=== PATIENT | male | born 1965 | race Hispanic/Latino ===

== ENCOUNTER 2018-03-14 16:07 | Inpatient (IN) | payer MEDICAID ==
[2018-03-14 17:00] LABS: BASO # 0.1 K/uL (0.0-0.2); BASO % 1.2 % (0.0-2.0); EOS # 0.3 K/uL (0.0-0.7); EOS % 2.9 % (0.0-4.0); HEMOGLOBIN 15.5 g/dL (12.0-18.0); LYMPH % 21.7 % (20.0-40.0); MEAN CELL VOLUME 84.9 fL (80.0-94.0); MEAN CORPUSCULAR HEMOGLOBIN 29.4 pg (27.0-31.0); MEAN CORPUSCULAR HGB CONC 34.6 g/dL (33.0-37.0); MEAN PLATELET VOLUME 8.3 fL (7.2-11.7); MONO # 0.6 K/uL (0.0-0.8); MONO % 6.9 % (0.0-10.0); NEUT # 6.2 K/uL (1.8-7.0); NEUT % 67.3 % (50.0-75.0); NRBC % 0.1 % (0.0-2.0); RBC 5.28 Mil/uL (4.40-5.90); WHITE BLOOD COUNT 9.2 K/uL (4.8-10.8)
[2018-03-14 17:17] LABS: ACETAMINOPHEN < 10.0 ug/mL (10.0-30.0); ALBUMIN 4.2 g/dL (3.5-5.0); ALT/SGPT 22 U/L (21-72); AST/SGOT 29 U/L (17-59); BLOOD UREA NITROGEN 15 mg/dL (9-20); CALCIUM 9.5 mg/dl (8.6-10.4); GFR AFRICAN-AMERICAN > 60; GFR NON-AFRICAN AMERICAN > 60; SALICYLATE < 1.0 mg/dL 1
[2018-03-14 19:06] LABS: URINE BILIRUBIN 1+ (NEGATIVE); URINE BLOOD NEGATIVE (NEGATIVE); URINE CLARITY Hazy (Clear); URINE COLOR Amber (YELLOW); URINE GLUCOSE (UA) NORMAL (Normal); URINE LEUKOCYTE ESTERASE NEG Leu/uL (Negative); URINE PROTEIN 1+ mg/dL (NEGATIVE)
[2018-03-14 19:18] LABS: BARBITURATES, UR NEGATIVE (NEGATIVE); PHENCYCLIDINE, UR NEGATIVE (NEGATIVE)
[2018-03-14 19:26] LABS: BENZODIAZEPINES, UR POSITIVE (NEGATIVE); OPIATES, UR POSITIVE (NEGATIVE)
--- NOTE | 2018-03-14 19:46 | C.PDOC ---
Time Seen by Provider: 03/14/18 16:35 Chief Complaint (Nursing): Psychiatric Evaluation History Per: Patient, Family Onset/Duration Of Symptoms: Days Current Symptoms Are (Timing): Still Present Suicide/Self Injury Attempted (Context): Ingestion Ingestion Of Substance: Xanax Modifying Factor(s): Narcotics Severity: Moderate Associated Symptoms: Depression Additional History Per: Prior Records Past Medical History Reviewed: Historical Data, Nursing Documentation, Vital Signs Vital Signs: Last Vital Signs Temp 97.3 F L 03/14/18 18:15 Pulse 55 L 03/14/18 18:15 Resp 18 03/14/18 18:15 BP 126/82 03/14/18 18:15 Pulse Ox 99 03/14/18 18:15 - Medical History PMH: Hepatitis (C), HTN (Patient reported history of HTN and medication), Seizures (Patient reported seizures during opiate withdrawal) Family History: States: Unknown Family Hx - Social History Hx Tobacco Use: Yes Hx Alcohol Use: No Hx Substance Use: Yes (IVDU Heroin) - Immunization History Hx Tetanus Toxoid Vaccination: No Hx Influenza Vaccination: No Hx Pneumococcal Vaccination: No Review Of Systems Except As Marked, All Systems Reviewed And Found Negative. Constitutional: Negative for: Fever, Weakness Cardiovascular: Negative for: Chest Pain Respiratory: Negative for: Shortness of Breath Gastrointestinal: Negative for: Vomiting, Abdominal Pain Musculoskeletal: Negative for: Neck Pain Neurological: Negative for: Weakness, Numbness, Seizures Physical Exam - Physical Exam Appears: Non-toxic, No Acute Distress Skin: Normal Color, Warm, Dry Head: Atraumatic, Normacephalic Eye(s): bilateral: PERRL, EOMI Neck: Normal ROM, Supple Cardiovascular: Rhythm Regular Respiratory: Normal Breath Sounds, No Accessory Muscle Use Gastrointestinal/Abdominal: Soft, No Tenderness Extremity: Normal ROM, No Deformity Neurological/Psych: Oriented x3, Normal Motor, Normal Sensation ED Course And Treatment - Laboratory Results Result Diagrams: 03/14/18 16:49 03/14/18 16:49 Lab Interpretation: No Acute Changes O2 Sat by Pulse Oximetry: 99 Pulse Ox Interpretation: Normal Progress Note: Pt is medically stable for psych admission. Disposition Counseled Patient/Family Regarding: Studies Performed, Diagnosis, Smoking Cessation - Disposition Disposition: HOSPITALIZED Disposition Time: 19:47 Condition: STABLE - Clinical Impression Clinical Impression: Drug abuse, Depression Decision To Admit - Pt Status Changed To: Hospital Disposition Of: Inpatient - Admit Certification Admit to Inpatient:: After my assessment, the patient will require hospitalization for at least two midnights. This is because of the severity of symptoms shown, intensity of services needed, and/or the medical risk in this patient being treated as an outpatient. - InPatient: Physician Admission Certification: I certify that this patient requires 2 or more midnights of care for the following reason:: Psych. - . Bed Request Type: Psychiatry Admitting Physician: Gudelia Maher Patient Diagnosis: Drug abuse, Depression
--- NOTE | 2018-03-14 20:58 | PCM.BM ---
<Canelo Mcadams - Last Filed: 03/14/18 20:56> Treatment Plan Problems - Problems identified on initial assessmt Depression Date Initiated: 03/14/18 Time Initiated: 20:56 Assessment reference: NA Status: Active Substance Abuse Date Initiated: 03/14/18 Time Initiated: 20:56 Status: Active Treatment assets and liabiliti Patient Assests: cooperative, motivated, self-reliant, ADL independent, good support system, negotiates basic needs Patient Liabilities: live alone (Homeless), financial problems (Homeless), poor support system (Father ), substance abuse (Heroin, crack cocaine, Amphetamines, marijuana), legal issue (Recently released from [place] [facility]) - Milieu Protocol Maintain good personal hygiene: daily Encourage regular showers, daily Remind patient to perform daily oral care, every shift Assist patient to perform ADL's Conduct patient checks and document Observation sheet: Q15 minutes (For safety) Maintain personal safety: every shift Educate patient to report safety concerns to staff, every shift Monitor environment for contraband/sharps Medication safety: Monitor for expected outcome, potential side effects: every shift, Assess barriers to learning: every shift, Assess readiness for medication education: every shift <Miki Abdi - Last Filed: 03/16/18 11:13> - Diagnosis (1) Depression Status: Acute Interventions: 03/16/18 11:13 * Assess/adjust medications daily and /or as needed * See patient on an individual basis 7x/week to assess symptoms of depression * Monitor for side effects & effectiveness of medications * (2) Drug abuse Status: Acute Interventions: 03/16/18 11:13 * Assess 7x/week regarding severity of withdrawal * Educate regarding risks, benefits, side effects and alternatives of medications * Use Motivational Interviewing for abstinence * Use CBT for relapse prevention * Medication management for withdrawal symptoms * Encourage medication assisted treatment * <Melinda Padilla - Last Filed: 03/16/18 16:20> Family Contact Family involvement: Patient does not wish Family/SO involvement Family contact: Patient declines to allow family contact at present - Goals for Treatment Patient goals for treatment: "I want to go to a rehab program." Discharge/Continuing Care - Education Needs Education Needs: Patient Medication, Patient Diagnosis/Disease Process, Patient Coping Skills, Patient Placement options - Discharge Discharge Criteria: Free of Suicidal thoughts, Normal sleep pattern, Ability to care for self, No longer exhibiting s/s of withdrawal, Reduction of target symptoms Discharge to:: Substance Abuse Rehab - Treatment Team Participation Discussed with Family/SO: No Was Patient/Family/SO present at Treatment Team Meeting: Yes
--- NOTE | 2018-03-15 10:12 | PCM.PSYCH ---
Initial Psychiatric Evaluation - Initial Psychiatric Evaluation Type of Admission: Voluntary Legal Status: Capacity Chief Complaint (in patient's own words): "I am feeling depressed" History of Present Illness and Precipitating Events: Patient is a 53 year old male who presented to the ED yesterday with depression and substance abuse. Patient is currently homeless. Patient was incarcerated for 13 months and was released 2.5 months ago. Upon release, he found his apartment boarded up and came to the news that his father has . Patient is now homeless. Patient for the past 2.5 months has snorted 11 bags of heroin a day, snorted 3-4 bags of cocaine a day, used 4 mg os Xanax a day, and used 80mg of methadone on and off. Patient expresses feelings of depression but with no suicidal ideation. Patient was having suicidal ideations yesterday but does not express suicidal ideations today. Patient has no history of suicidal ideations in the past. Patient is visibly upset during the interview. Patient reports decreased sleep, interests, concentration, energy, appetite, and feelings of guilt. His last use of heroin was yesterday, 6 bags. Patient reports withdrawal symptoms complaining of nausea, joint pain, diarrhea , and headaches. Detox Hx: several time (unspecified) Rehab Hx: several times (unspecified) Medical Hx: Hepatitis C, HTN, Seizures (from opiate withdrawal) Surgical Hx: denies Medications: unknown Psych Hx: denies Fam Hx: unknown Allergies: Penicillin Current Medications: Active Medications Generic Name Dose Route Start Last Admin Trade Name Freq PRN Reason Stop Dose Admin Chlordiazepoxide 25 mg 03/14/18 23:00 03/15/18 10:03 Librium PO 03/19/18 22:59 25 mg Q6H EMILY Administration Taper Chlordiazepoxide 25 mg 03/14/18 22:04 Librium PO Q4H PRN Alcohol Withdrawal Clonidine HCl 0.1 mg 03/14/18 22:04 Catapres PO Q4H PRN Symptoms of alcohol withdrawl Gabapentin 400 mg 03/14/18 22:30 03/15/18 10:03 Neurontin PO 400 mg TID EMILY Administration Hydroxyzine HCl 50 mg 03/14/18 22:02 Atarax PO Q6H PRN Anxiety Quetiapine Fumarate 100 mg 03/14/18 22:15 06/04/18 22:49 Seroquel PO 100 mg HS EMILY Administration Past Psychiatric History - Past Psychiatric History Previous Treatment History: None Pertinent Medical Hx (Current Medical&Sleep Prob, Allergies): Allergies Allergy/AdvReac Type Severity Reaction Status Date / Time No Known Allergies Allergy Verified 03/14/18 16:25 No Known Home Med 03/14/18 Review of Systems - Review of Systems All systems: reviewed and no additional remarkable complaints except - Neurological Neurological: UNREMARKABLE - Psychiatric Psychiatric: Anxiety, Depression, Irritability, Suicidal Ideation. absent: Auditory Hallucinations, Hallucinations, Paranoia, Visual Hallucinations, Tactile Hallucinations Mental Status Examination - Personal Presentation Personal Presentation: Looks stated age - Affect Affect: Constricted, Depressed - Motor Activity Motor Activity: Calm - Reliability in Providing Information Reliability in Providing Information: Fair - Speech Speech: Organized - Mood Mood: Depressed, Anxious - Formal Thought Process Formal Thought Process: No Impairment - Obsessions/Compulsions Obsessions: No Compulsions: No - Cognitive Functions Orientation: Person, Place, Situation, Time Sensorium: Alert Attention/Concentration: Attentive Abstract Thinking: [place] Estimate of Intelligence: Below average Judgement: Imparied, as evidence by: Poor judgement, Imparied, as evidence by: Lack of insight into illness - Risk Risk: Suicidal, Withdrawal, Diminished functioning - Limitations Limitations: Living alone DSM 5 DX - DSM 5 DSM 5 Diagnosis: Major depressive disorder recurrent severe without psychotic features Opioid use disorder severe Opioid withdrawal Sedative/Hypnotic use disorder severe Sedative/Hypnotic withdrawal uncomplicated Cocaine use disorder severe - Recommended/Plan of Treatment Treatment Recommendations and Plan of Treatment: Major depressive disorder recurrent severe without psychotic features -CBT -Psychoeducation -Supportive therapy, group therapy, individual therapy -Seroquel 100 mg PO QHS -Gabapentin 400 mg po TID Opioid use disorder severe -CBT -Psychoeducation -Supportive therapy, individual therapy -Use RI for abstinence Opioid withdrawal -CBT -Psychoeducation -Supportive therapy, individual therapy -Clonidine when necessary -Methadone taper Sedative/Hypnotic use disorder severe -CBT -Psychoeducation -Supportive therapy, individual therapy -Use RI for abstinence Sedative/Hypnotic withdrawal uncomplicated -CBT -Psychoeducation -Supportive therapy, individual therapy -Librium when necessary -Librium taper Cocaine use disorder severe -Monitor signs and symptoms -Use RI for abstinence
[2018-03-15] MEDS ORDERED: Aluminum Hydroxide/Magnesium Hydroxide Susp (30 mL) PO PRN (13:12)
--- NOTE | 2018-03-16 11:13 | PCM.PYCHPN ---
Psychiatric Progress Note - Psychiatric Progress Note Patient seen today, length of contact: 16 min Patient Chief Complaint: "I am feeling depressed" Problems Identified/Issues Discussed: Patient seen and evaluated, chart reviewed and discussed with the nurse. Pt still reports depressed mood but reports some improvement in the feelings of hopelessness and helplessness. He is on methadone taper and reports withdrawal symptoms including cramps, back pain and sweating He also reports some improvement in sleep. However he remained isolated and withdrawn. He is taking medications and denies any side effects Symptoms are improving but he needs more time for stabilization. Supportive therapy and psychoeducation were given. Medication Change: Yes (Methadone taper) Medical Record Reviewed: Yes Mental Status Examination - Cognitive Function Orientation: Person, Place, Situation, Time Memory: Intact Attention: WNL Concentration: Poor Association: WNL Fund of Knowledge: Poor - Mood Mood: Depressed, Anxious - Affect Affect: Constricted, Depressed - Speech Speech: Soft - Formal Thought Process Formal Thought Process: No Impairment - Suicidal Ideation Suicidal Ideation: No - Homicidal Ideation Homicidal Ideation: No Goal/Treatment Plan - Goal/Treatment Plan Need for Continued Stay: Severe depression anxiety, Severe functional impairment Progress Toward Problem(s) and Goals/Treatment Plan: Major depressive disorder recurrent severe without psychotic features -CBT -Psychoeducation -Supportive therapy, group therapy, individual therapy -Seroquel 100 mg PO QHS -Gabapentin 400 mg po TID -Celexa 20 mg PO Daily Opioid use disorder severe -CBT -Psychoeducation -Supportive therapy, individual therapy -Use [place] for abstinence Opioid withdrawal -CBT -Psychoeducation -Supportive therapy, individual therapy -Clonidine when necessary -Methadone taper Sedative/Hypnotic use disorder severe -CBT -Psychoeducation -Supportive therapy, individual therapy -Use [place] for abstinence Sedative/Hypnotic withdrawal uncomplicated -CBT -Psychoeducation -Supportive therapy, individual therapy -Librium when necessary -Librium taper Cocaine use disorder severe -Monitor signs and symptoms -Use AZ for abstinence - Smoking Cessation Smoking Cessation Initiated: No
--- NOTE | 2018-03-16 23:23 | CP.PCM.CON ---
<JaclynAleida - Last Filed: 03/16/18 23:21> History of Present Illness - History of Present Illness History of Present Illness: CC HTN in 5E HPI Patient is a 53 M with past medical history of substance abuse, HTN and depression. Patient admitted because he feels depression and wants to get help at a facility for detox. Patient states he was given medication for HTN in the past "a water pill" and a "thiazide pill." Patient states he does not take it at home and states that he feels fine. Patient denies fever, chills, nausea, vomiting, diarrhea, constipation, headaches, blurriness, vision changes. PMH HTN, past jaw fracture surgery: none Social history: drug abuse, patient has a ETOH and tobacco use disorder history Allergies: penicillin PMD: None Review of Systems - Review of Systems All systems: reviewed and no additional remarkable complaints except - Constitutional Constitutional: As Per HPI - Genitourinary Additional comments: decreased urinary frequency Past Patient History - Past Social History Smoking Status: Light Smoker < 10 Cigarettes Daily - CARDIAC Hx Hypertension: Yes (Patient reported history of HTN and medication) - PULMONARY Hx Tuberculosis: No (Patient denied) - NEUROLOGICAL Hx Seizures: Yes (Patient reported seizures during opiate withdrawal) - HEMATOLOGICAL/ONCOLOGICAL Hx Cancer: No (Patient denied) Hx Human Immunodeficiency Virus (HIV): No (Patient denied) - GENITOURINARY/GYNECOLOGICAL Hx Sexually Transmitted Disorders: No (Patient denied) - PSYCHIATRIC Hx Substance Use: Yes - SURGICAL HISTORY Hx Surgeries: No - ANESTHESIA Hx Anesthesia: No Meds Allergies/Adverse Reactions: Allergies Allergy/AdvReac Type Severity Reaction Status Date / Time No Known Allergies Allergy Verified 03/14/18 16:25 - Medications Medications: Current Medications Al Hydrox/Mg Hydrox/Simethicone (Maalox 30 Ml) 30 ml PO TID PRN PRN Reason: Indigestion / Heartburn Chlordiazepoxide (Librium) 25 mg PO Q8H EMILY PRN Reason: Taper Stop: 03/19/18 22:59 Last Admin: 03/16/18 22:56 Dose: 25 mg Chlordiazepoxide (Librium) 25 mg PO Q4H PRN PRN Reason: Alcohol Withdrawal Last Admin: 03/16/18 20:44 Dose: 25 mg Citalopram Hydrobromide (Celexa) 20 mg PO DAILY [facility] Last Admin: 03/16/18 11:41 Dose: Not Given Clonidine HCl (Catapres) 0.1 mg PO Q4H PRN PRN Reason: Symptoms of alcohol withdrawl Last Admin: 03/16/18 16:16 Dose: 0.1 mg Gabapentin (Neurontin) 400 mg PO TID [facility] Last Admin: 03/16/18 17:47 Dose: 400 mg Hydrochlorothiazide (Microzide) 12.5 mg PO DAILY [facility] Hydroxyzine HCl (Atarax) 50 mg PO Q6H PRN PRN Reason: Anxiety Loperamide HCl (Imodium) 2 mg PO Q8 PRN PRN Reason: Diarrhea Methadone HCl (Methadone) 15 mg PO DAILY [facility] PRN Reason: Taper Stop: 03/19/18 09:59 Last Admin: 03/16/18 09:29 Dose: 15 mg Nicotine (Nicoderm Cq) 1 patch TD DAILY [facility] Last Admin: 03/16/18 16:16 Dose: 1 patch Ondansetron HCl (Zofran Tab) 4 mg PO Q8 PRN PRN Reason: Nausea/Vomiting Quetiapine Fumarate (Seroquel) 100 mg PO HS [facility] Last Admin: 03/16/18 22:56 Dose: 100 mg Physical Exam - Constitutional Appears: Non-toxic, No Acute Distress - Head Exam Head Exam: ATRAUMATIC, NORMAL INSPECTION, NORMOCEPHALIC - Eye Exam Eye Exam: EOMI, Normal appearance - ENT Exam ENT Exam: Mucous Membranes Moist, Normal Exam - Neck Exam Neck exam: Positive for: Lymphadenopathy, Normal Inspection - Respiratory Exam Respiratory Exam: Clear to Auscultation Bilateral, NORMAL BREATHING PATTERN. absent: Accessory Muscle Use - Cardiovascular Exam Cardiovascular Exam: REGULAR RHYTHM, +S1, +S2. absent: Bradycardia, Tachycardia - GI/Abdominal Exam GI & Abdominal Exam: Soft. absent: Firm, Guarding, Tenderness - Extremities Exam Extremities exam: Positive for: full ROM, normal inspection. Negative for: pedal edema - Back Exam Back exam: FULL ROM, NORMAL INSPECTION - Neurological Exam Neurological exam: Alert, CN II-XII Intact, Reflexes Normal - Psychiatric Exam Psychiatric exam: Flat Affect, Normal Mood Results - Vital Signs Recent Vital Signs: Last Vital Signs Temp 97.6 F 03/16/18 06:22 Pulse 76 03/16/18 22:37 Resp 20 03/16/18 06:22 BP 162/133 H 03/16/18 22:37 Pulse Ox 97 03/14/18 20:08 - Labs Result Diagrams: 03/14/18 16:49 03/14/18 16:49 Assessment & Plan - Assessment and Plan (Free Text) Assessment: HTN HCTZ 12.5 mg POQD Catapres 0.1 mg POQ4H PRN monitor vitals Substance abuse management per Psychiatry/Primary Librium 25 mg PO Q8H Methadone 15mg POQD Zofran 4 mg POQ8H PRN Seroquel 100 mg PO QHS Neurontin 400mg POTID Depression management per Psychiatry/Primary Citalopram 20 mg POQD Atarax 50 mg POQ6H PRN Tobacco Use disorder Nicotine TD QD Prophylaxis Maalox 30cc PO TID PRN patient can ambulate discussed with Dr. Gavi Anaya DO PGY1 - Date & Time Date: 03/16/18 Time: 23:26 <Chriss Gatica - Last Filed: 03/17/18 06:25> Meds - Medications Medications: Current Medications Al Hydrox/Mg Hydrox/Simethicone (Maalox 30 Ml) 30 ml PO TID PRN PRN Reason: Indigestion / Heartburn Chlordiazepoxide (Librium) 25 mg PO Q8H EMILY PRN Reason: Taper Stop: 03/19/18 22:59 Last Admin: 03/16/18 22:56 Dose: 25 mg Chlordiazepoxide (Librium) 25 mg PO Q4H PRN PRN Reason: Alcohol Withdrawal Last Admin: 03/16/18 20:44 Dose: 25 mg Citalopram Hydrobromide (Celexa) 20 mg PO DAILY [facility] Last Admin: 03/16/18 11:41 Dose: Not Given Clonidine HCl (Catapres) 0.1 mg PO Q4H PRN PRN Reason: Symptoms of alcohol withdrawl Last Admin: 03/16/18 16:16 Dose: 0.1 mg Gabapentin (Neurontin) 400 mg PO TID [facility] Last Admin: 03/16/18 17:47 Dose: 400 mg Hydrochlorothiazide (Microzide) 12.5 mg PO DAILY [facility] Hydroxyzine HCl (Atarax) 50 mg PO Q6H PRN PRN Reason: Anxiety Loperamide HCl (Imodium) 2 mg PO Q8 PRN PRN Reason: Diarrhea Methadone HCl (Methadone) 15 mg PO DAILY [facility]ILY PRN Reason: Taper Stop: 03/19/18 09:59 Last Admin: 03/16/18 09:29 Dose: 15 mg Nicotine (Nicoderm Cq) 1 patch TD DAILY [facility] Last Admin: 03/16/18 16:16 Dose: 1 patch Ondansetron HCl (Zofran Tab) 4 mg PO Q8 PRN PRN Reason: Nausea/Vomiting Quetiapine Fumarate (Seroquel) 100 mg PO HS [facility] Last Admin: 03/16/18 22:56 Dose: 100 mg Results - Vital Signs Recent Vital Signs: Last Vital Signs Temp 97.6 F 03/16/18 06:22 Pulse 76 03/16/18 22:37 Resp 20 03/16/18 06:22 BP 162/133 H 03/16/18 22:37 Pulse Ox 97 03/14/18 20:08 - Labs Result Diagrams: 03/14/18 16:49 03/14/18 16:49 Assessment & Plan - Date & Time Date: 03/17/18 (I have seen and examined the patient. I agree with the findings and plan of care as documented by Dr. Anaya. Patient with polysubstance abuse. Managed by psych. Consulted for hypertension. Currently on catapress prn. HCTz added. Monitor and adjust meds as necessary. ) Time: 06:23 Attending/Attestation - Attestation I have personally seen and examined this patient.: Yes I have fully participated in the care of the patient.: Yes I have reviewed all pertinent clinical information: Yes
--- NOTE | 2018-03-17 09:22 | CP.PCM.PN ---
Subjective - Date & Time of Evaluation Date of Evaluation: 03/17/18 Time of Evaluation: 07:00 - Subjective Subjective: Medicine Progress Note: Patient was seen and examined at bedside in the AM. Patient states he was feeling a bit anxious. He states he used cocaine (snorting), heroin (IV), and smoking. Patient denies chest pain, shortness of breath, palpitations, nausea or vomiting. Objective - Vital Signs/Intake and Output Vital Signs (last 24 hours): Temp Pulse Resp BP Pulse Ox 97.6 F 56 L 20 121/83 97 03/17/18 06:26 03/17/18 06:26 03/17/18 06:26 03/17/18 06:26 03/14/18 20:08 - Medications Medications: Current Medications Al Hydrox/Mg Hydrox/Simethicone (Maalox 30 Ml) 30 ml PO TID PRN PRN Reason: Indigestion / Heartburn Chlordiazepoxide (Librium) 25 mg PO Q8H [facility] PRN Reason: Taper Stop: 03/19/18 22:59 Last Admin: 03/17/18 07:59 Dose: 25 mg Chlordiazepoxide (Librium) 25 mg PO Q4H PRN PRN Reason: Alcohol Withdrawal Last Admin: 03/16/18 20:44 Dose: 25 mg Citalopram Hydrobromide (Celexa) 20 mg PO DAILY [facility] Last Admin: 03/16/18 11:41 Dose: Not Given Clonidine HCl (Catapres) 0.1 mg PO Q4H PRN PRN Reason: Symptoms of alcohol withdrawl Last Admin: 03/16/18 16:16 Dose: 0.1 mg Gabapentin (Neurontin) 400 mg PO TID [facility] Last Admin: 03/16/18 17:47 Dose: 400 mg Hydrochlorothiazide (Microzide) 12.5 mg PO DAILY [facility] Hydroxyzine HCl (Atarax) 50 mg PO Q6H PRN PRN Reason: Anxiety Loperamide HCl (Imodium) 2 mg PO Q8 PRN PRN Reason: Diarrhea Methadone HCl (Methadone) 15 mg PO DAILY [facility] PRN Reason: Taper Stop: 03/19/18 09:59 Last Admin: 03/16/18 09:29 Dose: 15 mg Nicotine (Nicoderm Cq) 1 patch TD DAILY [facility] Last Admin: 03/16/18 16:16 Dose: 1 patch Ondansetron HCl (Zofran Tab) 4 mg PO Q8 PRN PRN Reason: Nausea/Vomiting Quetiapine Fumarate (Seroquel) 100 mg PO HS [facility]ILY Last Admin: 03/16/18 22:56 Dose: 100 mg - Labs Labs: 03/14/18 16:49 03/14/18 16:49 - Constitutional Appears: No Acute Distress - Head Exam Head Exam: ATRAUMATIC, NORMAL INSPECTION - Eye Exam Eye Exam: EOMI, Normal appearance - ENT Exam ENT Exam: Mucous Membranes Moist - Cardiovascular Exam Cardiovascular Exam: REGULAR RHYTHM, +S1, +S2 - GI/Abdominal Exam GI & Abdominal Exam: Soft, Normal Bowel Sounds. absent: Tenderness - Extremities Exam Extremities Exam: Normal Inspection - Neurological Exam Neurological Exam: Alert, Awake, Oriented x3 - Psychiatric Exam Psychiatric exam: Normal Affect - Skin Skin Exam: Normal Color Assessment and Plan - Assessment and Plan (Free Text) Assessment: Elevated blood pressure - secondary to heroin/cocaine withdrawal vs. essential hypertension - Recommendation if blood pressure >130/90 please start HCTZ 12.5 mg PO daily Medicine is signing off. Thank you for this consult. Please reconsult if necessary. Case discussed with Dr. Dennis Carrillo PGY-1
--- NOTE | 2018-03-17 10:09 | PCM.PYCHPN ---
Psychiatric Progress Note - Psychiatric Progress Note Patient seen today, length of contact: 16 min Patient Chief Complaint: "I am feeling little better" Problems Identified/Issues Discussed: Patient seen and evaluated, chart reviewed and discussed with the nurse. Pt reports some improvement in sleep. However he started coming out of his room. Pt still reports depressed mood but reports some improvement in the feelings of hopelessness and helplessness. He still reports withdrawal symptoms including cramps, back pain, anxiety and sweating He is taking medications and denies any side effects Symptoms are improving but he needs more time for stabilization. Supportive therapy and psychoeducation were given. Medication Change: Yes Medical Record Reviewed: Yes Mental Status Examination - Cognitive Function Orientation: Person, Place, Situation, Time Memory: Intact Attention: WNL Concentration: Poor Association: WNL Fund of Knowledge: Poor - Mood Mood: Depressed, Anxious - Affect Affect: Constricted, Depressed - Speech Speech: Soft - Formal Thought Process Formal Thought Process: No Impairment - Suicidal Ideation Suicidal Ideation: No - Homicidal Ideation Homicidal Ideation: No Goal/Treatment Plan - Goal/Treatment Plan Need for Continued Stay: Severe depression anxiety, Severe functional impairment Progress Toward Problem(s) and Goals/Treatment Plan: Major depressive disorder recurrent severe without psychotic features -CBT -Psychoeducation -Supportive therapy, group therapy, individual therapy -Seroquel 100 mg PO QHS -Gabapentin 400 mg po TID -Celexa 20 mg Opioid use disorder severe -CBT -Psychoeducation -Supportive therapy, individual therapy -Use [place] for abstinence Opioid withdrawal -CBT -Psychoeducation -Supportive therapy, individual therapy -Clonidine when necessary -Methadone taper Sedative/Hypnotic use disorder severe -CBT -Psychoeducation -Supportive therapy, individual therapy -Use OR for abstinence Sedative/Hypnotic withdrawal uncomplicated -CBT -Psychoeducation -Supportive therapy, individual therapy -Librium when necessary -Librium taper Cocaine use disorder severe -Monitor signs and symptoms -Use OR for abstinence - Smoking Cessation Smoking Cessation Initiated: No
--- NOTE | 2018-03-18 10:00 | PCM.PYCHPN ---
Psychiatric Progress Note - Psychiatric Progress Note Patient seen today, length of contact: 16 min Patient Chief Complaint: "I am feeling little better" Problems Identified/Issues Discussed: Patient seen and evaluated, chart reviewed and discussed with the nurse. Pt still reports depressed mood but reports some improvement in the feelings of hopelessness and helplessness. He still reports withdrawal symptoms including cramps, back pain, anxiety and sweating, and is asking for more methadone. He was to go to inpatient rehabilitation after discharge. He is taking medications and denies any side effects Symptoms are improving but he needs more time for stabilization. Supportive therapy and psychoeducation were given. Medication Change: Yes Medical Record Reviewed: Yes Mental Status Examination - Cognitive Function Orientation: Person, Place, Situation, Time Memory: Intact Attention: WNL Concentration: Poor Association: WNL Fund of Knowledge: Poor - Mood Mood: Depressed, Anxious - Affect Affect: Constricted, Depressed - Speech Speech: Soft - Formal Thought Process Formal Thought Process: No Impairment - Suicidal Ideation Suicidal Ideation: No - Homicidal Ideation Homicidal Ideation: No Goal/Treatment Plan - Goal/Treatment Plan Need for Continued Stay: Severe depression anxiety, Severe functional impairment Progress Toward Problem(s) and Goals/Treatment Plan: Major depressive disorder recurrent severe without psychotic features -CBT -Psychoeducation -Supportive therapy, group therapy, individual therapy -Seroquel 100 mg PO QHS -Gabapentin 400 mg po TID -Celexa 20 mg Opioid use disorder severe -CBT -Psychoeducation -Supportive therapy, individual therapy -Use [place] for abstinence Opioid withdrawal -CBT -Psychoeducation -Supportive therapy, individual therapy -Clonidine when necessary -Methadone taper Sedative/Hypnotic use disorder severe -CBT -Psychoeducation -Supportive therapy, individual therapy -Use MS for abstinence Sedative/Hypnotic withdrawal uncomplicated -CBT -Psychoeducation -Supportive therapy, individual therapy -Librium when necessary -Librium taper Cocaine use disorder severe -Monitor signs and symptoms -Use MS for abstinence
--- NOTE | 2018-03-19 16:02 | PCM.PYCHPN ---
Psychiatric Progress Note - Psychiatric Progress Note Patient seen today, length of contact: 16 min Problems Identified/Issues Discussed: Patient seen and evaluated, chart reviewed and discussed with the nurse. Pt reports improvement in sleep. He started coming out of his room. Pt still reports depressed mood but reports some improvement in the feelings of hopelessness and helplessness. He reports improvement in withdrawal symptoms including cramps, back pain, anxiety and sweating He is taking medications and denies any side effects Symptoms are improving but he needs more time for stabilization. Supportive therapy and psychoeducation were given. Medication Change: Yes Medical Record Reviewed: Yes Mental Status Examination - Cognitive Function Orientation: Person, Place, Situation, Time Memory: Intact Attention: WNL Concentration: Poor Association: WNL Fund of Knowledge: Poor Decription of patient's judgement and insights: fair/fair Addtional comments: cooperative - Mood Mood: Depressed, Anxious - Affect Affect: Constricted, Depressed - Speech Speech: Soft - Formal Thought Process Formal Thought Process: No Impairment Psychotic Thoughts and Behaviors: denied - Suicidal Ideation Suicidal Ideation: No Plan: denied - Homicidal Ideation Homicidal Ideation: No Plan: denied Goal/Treatment Plan - Goal/Treatment Plan Need for Continued Stay: Severe depression anxiety, Severe functional impairment Progress Toward Problem(s) and Goals/Treatment Plan: Continue treatment as per primary team Therapy in milieu Psychoeducation provided Estimated Date of D/C: 03/22/18
--- NOTE | 2018-03-20 17:56 | PCM.PYCHPN ---
Psychiatric Progress Note - Psychiatric Progress Note Patient seen today, length of contact: 16 min Problems Identified/Issues Discussed: Patient seen and evaluated, chart reviewed and discussed with the nurse. Pt still reports depressed mood with some improvement in his feelings of hopelessness and helplessness. He reports improvement in withdrawal symptoms including cramps, back pain, anxiety and sweating. Pt reports improvement in sleep. He started coming out of his room. He is taking medications and denies any side effects Symptoms are improving but he needs more time for stabilization. Supportive therapy and psychoeducation were given. Medication Change: No Medical Record Reviewed: Yes Mental Status Examination - Cognitive Function Orientation: Person, Place, Situation, Time Memory: Intact Attention: WNL Concentration: Poor Association: Loose Fund of Knowledge: Poor Decription of patient's judgement and insights: fair/fair - Mood Mood: Depressed, Anxious - Affect Affect: Constricted, Depressed - Speech Speech: Soft - Formal Thought Process Formal Thought Process: Delusions Psychotic Thoughts and Behaviors: denied - Suicidal Ideation Suicidal Ideation: No Plan: denied - Homicidal Ideation Homicidal Ideation: No Plan: denied Goal/Treatment Plan - Goal/Treatment Plan Need for Continued Stay: Severe depression anxiety, Severe functional impairment Progress Toward Problem(s) and Goals/Treatment Plan: Continue treatment as per primary team Therapy in milieu Psychoeducation provided Estimated Date of D/C: 03/22/18 - Smoking Cessation Smoking Cessation Initiated: No
[2018-03-21 06:59] VITALS: RESP 20
[2018-03-22 06:42] VITALS: BP 143/93; PULSE 53; TEMP 97.6; O2SAT 99
--- NOTE | 2018-03-22 09:51 | PCM.PYCHPN ---
Psychiatric Progress Note - Psychiatric Progress Note Patient seen today, length of contact: 16 min Patient Chief Complaint: "I am feeling little better" Problems Identified/Issues Discussed: Patient seen and evaluated, chart reviewed and discussed with the nurse. Pt still reports depressed mood but reports some improvement in the feelings of hopelessness and helplessness. He still reports withdrawal symptoms including cramps, back pain, anxiety and sweating, and is asking for more methadone. He was to go to inpatient rehabilitation after discharge. He is taking medications and denies any side effects Symptoms are improving but he needs more time for stabilization. Supportive therapy and psychoeducation were given. Medication Change: No Medical Record Reviewed: Yes Mental Status Examination - Cognitive Function Orientation: Person, Place, Situation, Time Memory: Intact Attention: WNL Concentration: Poor Association: Loose Fund of Knowledge: Poor - Mood Mood: Depressed, Anxious - Affect Affect: Constricted, Depressed - Speech Speech: Soft - Formal Thought Process Formal Thought Process: Delusions - Suicidal Ideation Suicidal Ideation: No - Homicidal Ideation Homicidal Ideation: No Goal/Treatment Plan - Goal/Treatment Plan Need for Continued Stay: Severe depression anxiety, Severe functional impairment Progress Toward Problem(s) and Goals/Treatment Plan: Major depressive disorder recurrent severe without psychotic features -CBT -Psychoeducation -Supportive therapy, group therapy, individual therapy -Seroquel 100 mg PO QHS -Gabapentin 400 mg po TID -Celexa 20 mg Opioid use disorder severe -CBT -Psychoeducation -Supportive therapy, individual therapy -Use [place] for abstinence Opioid withdrawal -CBT -Psychoeducation -Supportive therapy, individual therapy -Clonidine when necessary -Methadone taper Sedative/Hypnotic use disorder severe -CBT -Psychoeducation -Supportive therapy, individual therapy -Use WI for abstinence Sedative/Hypnotic withdrawal uncomplicated -CBT -Psychoeducation -Supportive therapy, individual therapy -Librium when necessary -Librium taper Cocaine use disorder severe -Monitor signs and symptoms -Use WI for abstinence Estimated Date of D/C: 03/22/18
--- NOTE | 2018-03-22 09:52 | PCM.PYCHDC ---
Mental Status Examination - Mental Status Examination Orientation: Person, Place, Situation, Time Memory: Intact Mood: Neutral Affect: Constricted Speech: Soft Attention: WNL Concentration: WNL Association: WNL Fund of Knowledge: WNL Formal Thought Process: No Impairment Description of patient's judgement and insight: good, fair Psychotic Thoughts and Behaviors: denies any AVH Suicidal Ideation: No Current Homicidal Ideation?: No Discharge Summary - Discharge Note Reason for Hospitalization: Patient is a 53 year old male who presented to the ED yesterday with depression and substance abuse. Patient is currently homeless. Patient was incarcerated for 13 months and was released 2.5 months ago. Upon release, he found his apartment boarded up and came to the news that his father has . Patient is now homeless. Patient for the past 2.5 months has snorted 11 bags of heroin a day, snorted 3-4 bags of cocaine a day, used 4 mg os Xanax a day, and used 80mg of methadone on and off. Patient expresses feelings of depression but with no suicidal ideation. Patient was having suicidal ideations yesterday but does not express suicidal ideations today. Patient has no history of suicidal ideations in the past. Patient is visibly upset during the interview. Patient reports decreased sleep, interests, concentration, energy, appetite, and feelings of guilt. His last use of heroin was yesterday, 6 bags. Patient reports withdrawal symptoms complaining of nausea, joint pain, diarrhea , and headaches. Consultations:: List each consultation separately and include: 1. Reason for request. 2. Findings. 3. Follow-up Summary of Hospital Course include:: 1. Description of specific treatment plan utilized for patients during their course of treatmen. 2. Summarize the time- course for resolution of acute symptoms and/or regressed behaviors. 3. Describe issues identified and worked on during hospitalization. 4. Describe medication utilized. 5. Describe medical problems identified and treated. 6. Reassessment of suicide risk Summary of Hospital Course: Patient is a 53 year old male who presented to the ED yesterday with depression and substance abuse. Patient is currently homeless. Patient was incarcerated for 13 months and was released 2.5 months ago. Upon release, he found his apartment boarded up and came to the news that his father has . Patient is now homeless. Patient for the past 2.5 months has snorted 11 bags of heroin a day, snorted 3-4 bags of cocaine a day, used 4 mg os Xanax a day, and used 80mg of methadone on and off. Patient expresses feelings of depression but with no suicidal ideation. Patient was having suicidal ideations yesterday but does not express suicidal ideations today. Patient has no history of suicidal ideations in the past. Patient is visibly upset during the interview. Patient reports decreased sleep, interests, concentration, energy, appetite, and feelings of guilt. His last use of heroin was yesterday, 6 bags. Patient reports withdrawal symptoms complaining of nausea, joint pain, diarrhea , and headaches. Detox Hx: several time (unspecified) Rehab Hx: several times (unspecified) Medical Hx: Hepatitis C, HTN, Seizures (from opiate withdrawal) Surgical Hx: denies Medications: unknown Psych Hx: denies Fam Hx: unknown Allergies: Penicillin - Diagnosis (1) Depression Current Visit: Yes Status: Acute (2) Drug abuse Current Visit: Yes Status: Acute - Final Diagnosis (DSM 5) Condition upon Discharge: STABLE Disposition: HOME/ ROUTINE Follow-up Treatment Plan: Major depressive disorder recurrent severe without psychotic features -CBT -Psychoeducation -Supportive therapy, group therapy, individual therapy -Seroquel 100 mg PO QHS -Gabapentin 400 mg po TID -Celexa 20 mg Opioid use disorder severe -CBT -Psychoeducation -Supportive therapy, individual therapy -Use ND for abstinence Opioid withdrawal -CBT -Psychoeducation -Supportive therapy, individual therapy -Clonidine when necessary -Methadone taper Sedative/Hypnotic use disorder severe -CBT -Psychoeducation -Supportive therapy, individual therapy -Use ND for abstinence Sedative/Hypnotic withdrawal uncomplicated -CBT -Psychoeducation -Supportive therapy, individual therapy -Librium when necessary -Librium taper Cocaine use disorder severe -Monitor signs and symptoms -Use ND for abstinence Prescriptions/Medication Reconciliation: Citalopram [celEXA] 20 mg PO DAILY #30 tab hydrOXYzine HCl [Atarax] 50 mg PO BID PRN #60 tab PRN Reason: Anxiety
== END 2018-03-22 12:28 | disposition home or self-care (01) | DRG 430 ==
LOC: C.ER 16:07 → C.5E 19:49
PROVIDERS: ADMIT Psychiatry & Neurology Psychiatry; ATTEND Psychiatry & Neurology Psychiatry
PROC: GZ3ZZZZ Medication Management (ICD-10-PCS; principal; 2018-03-14)
PROC: GZHZZZZ Group Psychotherapy (ICD-10-PCS; 2018-03-14)
PROC: GZ56ZZZ Individual Psychotherapy, Supportive (ICD-10-PCS; 2018-03-14)
PROC: HZ2ZZZZ Detoxification Services for Substance Abuse Treatment (ICD-10-PCS; 2018-03-14)
PROC: HZ56ZZZ Individual Psychotherapy for Substance Abuse Treatment, Psychoeducation (ICD-10-PCS; 2018-03-14)
PROC: HZ59ZZZ Individual Psychotherapy for Substance Abuse Treatment, Supportive (ICD-10-PCS; 2018-03-14)
DX: F33.2 Major depressive disorder, recurrent severe without psychotic features (principal); F11.23 Opioid dependence with withdrawal; F13.239 Sedative, hypnotic or anxiolytic dependence with withdrawal, unspecified; F14.20 Cocaine dependence, uncomplicated; B18.2 Chronic viral hepatitis C; F41.9 Anxiety disorder, unspecified; I10 Essential (primary) hypertension; Z59.0 Homelessness; Z72.0 Tobacco use; Z79.899 Other long term (current) drug therapy

== ENCOUNTER 2018-03-24 01:07 | Emergency (ER) | payer MEDICAID ==
[2018-03-24 01:23] VITALS: O2SAT 98
--- NOTE | 2018-03-24 01:33 | C.PDOC ---
History Of Present Illness Patient presents to the ER stating he has been feeling depressed with some suicidal ideation but no plan. Patient admits to heroin and cocaine used today. Patient was discharged a few days ago for similar complaints. Denies physical complaints at this time. Time Seen by Provider: 03/24/18 01:33 Chief Complaint (Nursing): Psychiatric Evaluation History Per: Patient History/Exam Limitations: no limitations Onset/Duration Of Symptoms: Days Current Symptoms Are (Timing): Still Present Suicide/Self Injury Attempted (Context): None Modifying Factor(s): None Severity: None Pain Scale Rating Of: 0 Associated Symptoms: Depression, Suicidal Thoughts. denies: Suicidal Plan Involuntary Hold By: None Recent travel outside of the [place]: No Past Medical History Reviewed: Historical Data, Nursing Documentation, Vital Signs Vital Signs: Last Vital Signs Temp 98.4 F 03/24/18 01:16 Pulse 71 03/24/18 01:16 Resp 16 03/24/18 01:16 BP 187/109 H 03/24/18 01:16 Pulse Ox 98 03/24/18 02:12 - Medical History PMH: Hepatitis (C), HTN (Patient states non compliant with HTN meds), Seizures ( Patient reported seizures during opiate withdrawal) - [facility] Procedures DETOXIFICATION SERVICES FOR SUBSTANCE ABUSE TREATMENT (03/14/18) GROUP PSYCHOTHERAPY (03/14/18) INDIV PSYCHOTHERAPY FOR SUBSTANCE ABUSE TREATMENT, SUPPORT (03/14/18) INDIV PSYCHOTHERAPY FOR SUBSTANCE ABUSE, PSYCHOEDUCATION (03/14/18) INDIVIDUAL PSYCHOTHERAPY, SUPPORTIVE (03/14/18) MEDICATION MANAGEMENT (03/14/18) Family History: States: No Known Family Hx - Social History Hx Tobacco Use: Yes Hx Alcohol Use: No Hx Substance Use: Yes - Immunization History Hx Tetanus Toxoid Vaccination: No Hx Influenza Vaccination: No Hx Pneumococcal Vaccination: No Review Of Systems Constitutional: Negative for: Fever, Chills Cardiovascular: Negative for: Chest Pain, Palpitations Respiratory: Negative for: Cough, Shortness of Breath Gastrointestinal: Negative for: Nausea, Vomiting Psych: Positive for: Depression, Suicidal ideation Physical Exam - Physical Exam Appears: Non-toxic Skin: Warm, Dry Head: Normacephalic Oral Mucosa: Moist Chest: Symmetrical, No Tenderness Cardiovascular: Rhythm Regular Respiratory: No Rales, No Rhonchi, No Wheezing Gastrointestinal/Abdominal: Soft, No Tenderness Neurological/Psych: Oriented x3 ED Course And Treatment - Laboratory Results Result Diagrams: 03/24/18 02:27 03/24/18 02:27 O2 Sat by Pulse Oximetry: 98 (Room air) Pulse Ox Interpretation: Normal Progress Note: Blood work and urinalysis ordered. Crisis notified. pt was cleared for discharge by dr hansen Disposition Counseled Patient/Family Regarding: Studies Performed, Diagnosis, Need For Followup - Disposition Referrals: [facility] [Outside] Disposition: HOME/ ROUTINE Disposition Time: 01:33 Condition: FAIR Instructions: Polysubstance Abuse (DC) Forms: [employer] ([place] Citizen) - Clinical Impression Clinical Impression: Polysubstance abuse - Scribe Statement The provider has reviewed the documentation as recorded by the Scribe Ervin Don All medical record entries made by the Scribe were at my direction and personally dictated by me. I have reviewed the chart and agree that the record accurately reflects my personal performance of the history, physical exam, medical decision making, and the department course for this patient. I have also personally directed, reviewed, and agree with the discharge instructions and disposition.
[2018-03-24 02:35] LABS: BASO % 0.5 % (0.0-2.0); EOS # 0.1 K/uL (0.0-0.7); EOS % 1.2 % (0.0-4.0); GRANULAR CAST 4 /lpf (0-1); HEMOGLOBIN 16.6 g/dL (12.0-18.0); LYMPH # 1.8 K/uL (1.0-4.3); LYMPH % 22.3 % (20.0-40.0); MEAN CELL VOLUME 85.4 fL (80.0-94.0); MEAN CORPUSCULAR HEMOGLOBIN 28.8 pg (27.0-31.0); MEAN CORPUSCULAR HGB CONC 33.7 g/dL (33.0-37.0); MEAN PLATELET VOLUME 7.8 fL (7.2-11.7); MONO # 0.5 K/uL (0.0-0.8); MONO % 6.4 % (0.0-10.0); NEUT # 5.5 K/uL (1.8-7.0); NEUT % 69.6 % (50.0-75.0); NRBC % 0.1 % (0.0-2.0); RBC 5.77 Mil/uL (4.40-5.90); RED CELL DISTRIBUTION WIDTH 12.6 % (11.5-14.5); URINE BILIRUBIN NEGATIVE (NEGATIVE); URINE BLOOD NEGATIVE (NEGATIVE); URINE CLARITY Clear (Clear); URINE COLOR Yellow (YELLOW); URINE GLUCOSE (UA) NORMAL (Normal); URINE LEUKOCYTE ESTERASE NEG Leu/uL (Negative); URINE PROTEIN NEGATIVE (NEGATIVE); URINE UROBILINOGEN NORMAL mg/dL (0.2-1.0); WHITE BLOOD COUNT 7.9 K/uL (4.8-10.8)
[2018-03-24 02:46] LABS: BARBITURATES, UR NEGATIVE (NEGATIVE); PHENCYCLIDINE, UR NEGATIVE (NEGATIVE)
[2018-03-24 02:47] LABS: ALBUMIN 4.9 g/dL (3.5-5.0); ALT/SGPT 118 U/L (21-72); AST/SGOT 74 U/L (17-59); BLOOD UREA NITROGEN 14 mg/dL (9-20); CALCIUM 9.5 mg/dl (8.6-10.4); GFR AFRICAN-AMERICAN > 60; GFR NON-AFRICAN AMERICAN > 60
[2018-03-24 02:49] LABS: BENZODIAZEPINES, UR POSITIVE (NEGATIVE); OPIATES, UR POSITIVE (NEGATIVE)
[2018-03-24 05:46] VITALS: BP 160/72; PULSE 90; RESP 20; TEMP 98.8
== END 2018-03-24 05:52 | disposition home or self-care (01) ==
LOC: C.ER 01:07
DX: F19.10 Other psychoactive substance abuse, uncomplicated (principal)

== ENCOUNTER 2018-05-13 18:04 | Inpatient (IN) | payer MEDICAID ==
--- NOTE | 2018-05-13 18:49 | C.PDOC ---
History Of Present Illness <TroyaliciaMatta - Last Filed: 05/13/18 18:38> <Jayden Berkowitz - Last Filed: 05/13/18 21:26> 53 yo Patient presents to the ER stating he has been feeling depressed , suicidal attempt. Pt reports, " took 12-14 pills of xanax 2mg since today AM". Pt reports, "homeless, lost all my loved ones". Patient also admits to heroin use today and cocaine yesterday. At present time, pt appears awake, alert, drowsy, not in any apparent distress, denies any active physical complaints. ( Janice Lopez) History Per: Patient <Janice Lopez - Last Filed: 05/13/18 18:38> <Jayden Berkowitz - Last Filed: 05/13/18 21:26> Time Seen by Provider: 05/13/18 18:37 Chief Complaint (Nursing): Psychiatric Evaluation Past Medical History Reviewed: Historical Data, Nursing Documentation, Vital Signs - Medical History PMH: Hepatitis (C), HTN (Patient states non compliant with HTN meds), Seizures ( Patient reported seizures during opiate withdrawal) Denies: Diabetes, HIV, Sexually Transmitted Disease Family History: States: Unknown Family Hx - Social History Hx Tobacco Use: Yes Hx Alcohol Use: No Hx Substance Use: Yes - Immunization History Hx Tetanus Toxoid Vaccination: No Hx Influenza Vaccination: No Hx Pneumococcal Vaccination: No <JohnJanice - Last Filed: 05/13/18 18:38> Vital Signs: Last Vital Signs Temp 98 F 05/13/18 18:19 Pulse 41 L 05/13/18 20:47 Resp 17 05/13/18 20:47 BP 93/60 L 05/13/18 20:47 Pulse Ox 98 05/13/18 20:47 - [facility] Procedures DETOXIFICATION SERVICES FOR SUBSTANCE ABUSE TREATMENT (03/14/18) GROUP PSYCHOTHERAPY (03/14/18) INDIV PSYCHOTHERAPY FOR SUBSTANCE ABUSE TREATMENT, SUPPORT (03/14/18) INDIV PSYCHOTHERAPY FOR SUBSTANCE ABUSE, PSYCHOEDUCATION (03/14/18) INDIVIDUAL PSYCHOTHERAPY, SUPPORTIVE (03/14/18) MEDICATION MANAGEMENT (03/14/18) Review Of Systems Except As Marked, All Systems Reviewed And Found Negative. Constitutional: Negative for: Fever, Chills Eyes: Negative for: Vision Change ENT: Negative for: Throat Pain Cardiovascular: Negative for: Chest Pain, Palpitations, Orthopnea, Edema, Light Headedness Respiratory: Negative for: Cough, Shortness of Breath, Wheezing Gastrointestinal: Negative for: Nausea, Vomiting, Abdominal Pain, Diarrhea Musculoskeletal: Negative for: Neck Pain, Back Pain Skin: Negative for: Rash Neurological: Negative for: Weakness, Numbness, Headache, Dizziness Psych: Positive for: Depression, Suicidal ideation <Janice Lopez - Last Filed: 05/13/18 18:38> Physical Exam - Physical Exam Appears: Well, Non-toxic, No Acute Distress Skin: Normal Color, Warm, Dry, No Rash Head: Normacephalic Eye(s): bilateral: PERRL Nose: No Flaring, No Discharge Oral Mucosa: Moist, No Drooling Lips: Normal Appearing Throat: No Erythema, No Drooling Neck: Normal ROM, Supple Cardiovascular: Rhythm Regular Respiratory: No Decreased Breath Sounds, No Accessory Muscle Use, No Stridor, No Wheezing Gastrointestinal/Abdominal: Soft, No Tenderness, No Distention, No Guarding, No Rebound Back: No CVA Tenderness Extremity: Normal ROM, No Pedal Edema, No Deformity, No Swelling Neurological/Psych: Oriented x3, Normal Speech, Normal Motor, Normal Sensation, Normal Reflexes <Janice Lopez - Last Filed: 05/13/18 18:38> ED Course And Treatment O2 Sat by Pulse Oximetry: 98 Pulse Ox Interpretation: Normal Progress Note: Poison Control called, spoke Rosa Maria. Blood work, OBS, hydration with fluids recommend. Case discussed with and sign out for further eval/OBS. <Janice Lopez - Last Filed: 05/13/18 18:38> - Laboratory Results Result Diagrams: 05/13/18 19:08 05/13/18 19:08 Lab Interpretation: Abnormal (tox + cocaine and opiates, (NO BENZO'S NOTED)) ECG: Interpreted By Me ECG Rhythm: Sinus Rhythm ECG Interpretation: Normal Rate From EC Pulse Ox Interpretation: Normal - Radiology CXR: Interpreted by Me CXR Interpretation: Yes: No Acute Disease Reevaluation Time: 21:22 Reassessment Condition: Improved - Physician Consult Information Outcome Of Conversation: Signed over @ 1900, pt with substance abuse, depressed. pt seen and examined @ 1900: awake, alert, oriented, non-infected tract perkins on forearms, pinpoint pupils. Understand d/w Crisis and obs recommended. 2119: d/w Crisis, ok to admit to Psych, depression. remained awake through ED visit <Jayden Berkowitz - Last Filed: 05/13/18 21:26> Medical Decision Making <Janice Lopez - Last Filed: 05/13/18 18:38> <Jayden Berkowitz - Last Filed: 05/13/18 21:26> Medical Decision Making: NO Benzo's, + opiates/cocaine, no alcohol (Jayden Berkowitz) Disposition - Disposition Disposition Time: 19:00 <Janice Lopez - Last Filed: 05/13/18 18:38> Doctor Will See Patient In The: Hospital Counseled Patient/Family Regarding: Studies Performed, Diagnosis - Disposition Disposition Time: 21:26 <Jayden Berkowitz - Last Filed: 05/13/18 21:26> - Disposition Disposition: HOSPITALIZED Condition: GOOD Forms: [facility] (Japanese) - Clinical Impression Clinical Impression: Depression, Polysubstance abuse Physician Patient Turnover Patient Signed Over To: Jayden Berkowitz Handoff Comments: Blood work, EKG, CXR, re-eval, dispo <Janice Lopez - Last Filed: 05/13/18 18:38>
[2018-05-13] MEDS ORDERED: Sodium Chloride 0.9% 1,000 ML IV ONE (18:50)
[2018-05-13 19:13] LABS: BASO % 0.4 % (0.0-2.0); EOS # 0.2 K/uL (0.0-0.7); EOS % 3.5 % (0.0-4.0); HEMOGLOBIN 12.8 g/dL (12.0-18.0); LYMPH # 1.8 K/uL (1.0-4.3); LYMPH % 28.5 % (20.0-40.0); MEAN CELL VOLUME 86.6 fL (80.0-94.0); MEAN CORPUSCULAR HEMOGLOBIN 29.2 pg (27.0-31.0); MEAN CORPUSCULAR HGB CONC 33.7 g/dL (33.0-37.0); MEAN PLATELET VOLUME 7.7 fL (7.2-11.7); MONO # 0.5 K/uL (0.0-0.8); MONO % 8.4 % (0.0-10.0); NEUT # 3.7 K/uL (1.8-7.0); NEUT % 59.2 % (50.0-75.0); NRBC % 0.1 % (0.0-2.0); RBC 4.37 Mil/uL (4.40-5.90); RED CELL DISTRIBUTION WIDTH 13.1 % (11.5-14.5); WHITE BLOOD COUNT 6.2 K/uL (4.8-10.8)
[2018-05-13 19:38] LABS: ALB/GLOB RATIO 1.3 (1.0-2.1); ALBUMIN 4.1 g/dL (3.5-5.0); ALT/SGPT 26 U/L (21-72); AMYLASE 58 U/L (30-110); AST/SGOT 34 U/L (17-59); BLOOD UREA NITROGEN 9 mg/dL (9-20); CALCIUM 9.1 mg/dl (8.6-10.4); GFR AFRICAN-AMERICAN > 60; GFR NON-AFRICAN AMERICAN > 60; LIPASE 43 U/L (23-300)
[2018-05-13 20:03] LABS: ACETAMINOPHEN < 10.0 ug/mL (10.0-30.0); SALICYLATE < 1.0 mg/dL 1
[2018-05-13] MEDS ORDERED: Sodium Chloride 0.9% 1,000 ML ONE (20:30)
[2018-05-13 20:52] LABS: URINE BILIRUBIN NEGATIVE (NEGATIVE); URINE BLOOD NEGATIVE (NEGATIVE); URINE CLARITY Clear (Clear); URINE COLOR Yellow (YELLOW); URINE GLUCOSE (UA) NORMAL (Normal); URINE LEUKOCYTE ESTERASE NEG Leu/uL (Negative); URINE PROTEIN NEGATIVE (NEGATIVE); URINE UROBILINOGEN NORMAL mg/dL (0.2-1.0)
[2018-05-13 21:16] LABS: BARBITURATES, UR NEGATIVE (NEGATIVE); BENZODIAZEPINES, UR NEGATIVE (NEGATIVE); PHENCYCLIDINE, UR NEGATIVE (NEGATIVE)
[2018-05-13 21:19] LABS: OPIATES, UR POSITIVE (NEGATIVE)
--- NOTE | 2018-05-14 02:04 | PCM.BM ---
<Meche Murdock - Last Filed: 05/14/18 02:02> Treatment Plan Problems - Problems identified on initial assessmt Depression Date Initiated: 05/14/18 Time Initiated: 00:30 Date resolved: 05/14/18 Assessment reference: NA Status: Active (Pt. reported feelin sad, and no energy) opiods abuse Date Initiated: 05/14/18 Time Initiated: 12:30 Date resolved: 05/14/18 Assessment reference: NA Status: Active Treatment assets and liabiliti Patient Assests: cooperative, motivated, self-reliant, ADL independent, good support system, negotiates basic needs Patient Liabilities: financial problems, substance abuse - Milieu Protocol Maintain good personal hygiene: daily Encourage regular showers, daily Remind patient to perform daily oral care, every shift Assist patient to perform ADL's Maintain personal safety: every shift Educate patient to report safety concerns to staff, every shift Monitor environment for contraband/sharps Medication safety: Monitor for expected outcome, potential side effects: every shift, Assess barriers to learning: every shift, Assess readiness for medication education: every shift <Susi Mariscal - Last Filed: 05/16/18 13:34> Family Contact Family involvement: Family/SO is involved Family contact: Patient declines to allow family contact at present - Goals for Treatment Patient goals for treatment: "I want to go to rehab in [place]." Discharge/Continuing Care - Education Needs Education Needs: Patient Medication, Patient Coping Skills, Patient Placement options, Patient Community resources - Discharge Discharge Criteria: Tolerates medication w/o severe side effects, Reduction of target symptoms Discharge to:: Substance Abuse Rehab - Treatment Team Participation Discussed with Family/SO: No Was Patient/Family/SO present at Treatment Team Meeting: Yes
--- NOTE | 2018-05-14 08:49 | RAD ---
Date of service: 05/13/2018 PROCEDURE: CHEST RADIOGRAPH, 1 VIEW HISTORY: Detox/Psy COMPARISON: None available. FINDINGS: LUNGS: No acute pulmonary disease appreciated bilaterally. PLEURA: No pneumothorax or pleural fluid seen. CARDIOVASCULAR: Cardiomegaly is not excluded however technical magnification caused by frontal technique may simulate cardiomegaly. Clinically correlate. OSSEOUS STRUCTURES: No significant abnormalities. VISUALIZED UPPER ABDOMEN: Normal. OTHER FINDINGS: None. IMPRESSION: Potential cardiomegaly. No acute pulmonary disease appreciable bilaterally. No pulmonary vascular congestion.
--- NOTE | 2018-05-14 12:12 | PCM.PSYCH ---
Initial Psychiatric Evaluation - Initial Psychiatric Evaluation Type of Admission: Voluntary Legal Status: Capacity Chief Complaint (in patient's own words): I was feeling suicidal.' History of Present Illness and Precipitating Events: Patient is a 53-year-old, CM who presented to the ED after a drug overdose. Pt stated that yesterday he was feeling increasingly depressed and he took 12, 2mg tablets of Xanax, from 8am until 3pm, along with heroin intravenously. He reports depressed mood and feelings of hopelessness and helplessness and states a desire to . Pt was just discharged from [facility] 2 months ago, to the [facility]. As per him, he couldn't stay there long and signed himself out within a week. Patient reports several stressors. Three months ago his father while he was living in [place] for a year. Patients been feeling guilty about not be with his father at the time of his passing. After his father passed he moved back to [place] to live in his fathers home, however, the home went into [facility] , making patient homeless. Patient reports his substance abuse amount and frequency has increased since his fathers passing. The past 3 months hes been intravenously using 4-6 bags of heroin daily. Patient reports feeling alone and isolated. He has one sibling in [place], [place] that he is close with. The rest of his siblings live in [place] or [place] and his only child, a son, is in the [employer] in [place]. Patient reports no sleep the past 3 days due to having no place to rest. He reports having a good appetite. He denies homicidal ideation and psychosis. He reports withdrawal symptoms including nausea, headaches and sweating. PMH: Low pulse rate, High Blood Pressure Current Medications: Active Medications Generic Name Dose Route Start Last Admin Trade Name Freq PRN Reason Stop Dose Admin Pneumococcal Polyvalent Vaccine 0.5 ml 05/16/18 10:00 Pneumovax 23 Vaccine IM 05/16/18 10:01 .ONCE ONE Past Psychiatric History - Past Psychiatric History Previous Treatment History: Inpatient Pertinent Medical Hx (Current Medical&Sleep Prob, Allergies): Allergies Allergy/AdvReac Type Severity Reaction Status Date / Time Penicillins Allergy Verified 05/13/18 18:21 No Known Home Med 05/13/18 Review of Systems - Review of Systems All systems: reviewed and no additional remarkable complaints except - Psychiatric Psychiatric: Anxiety, Depression, Hopelessness, Irritability, Suicidal Ideation. absent: Auditory Hallucinations, Homicidal Ideation, Paranoia Mental Status Examination - Personal Presentation Personal Presentation: Looks stated age - Affect Affect: Constricted, Depressed - Motor Activity Motor Activity: Calm - Reliability in Providing Information Reliability in Providing Information: Fair - Speech Speech: Organized - Formal Thought Process Formal Thought Process: No Impairment - Obsessions/Compulsions Obsessions: No Compulsions: No - Cognitive Functions Orientation: Person, Place, Situation, Time Sensorium: Alert Attention/Concentration: Attentive Abstract Thinking: [place] Estimate of Intelligence: Below average Judgement: Imparied, as evidence by: Poor judgement, Imparied, as evidence by: Lack of insight into illness - Risk Risk: Suicidal, Withdrawal, Diminished functioning - Limitations Limitations: Living alone DSM 5 DX - DSM 5 DSM 5 Diagnosis: 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
--- NOTE | 2018-05-14 16:09 | CP.PCM.CON ---
History of Present Illness - History of Present Illness History of Present Illness: Resident Medicine Consult Note Patient is a 53 year old male with past medical history of hypertension, hepatitis C, seizures, polysubstance abuse, depression presenting with bradycardia. He was admitted for psych detox yesterday due to ingestion of 12- 14 2 mg Xanax tablets. He states that his last use of heroin was 2 days prior and last use of cocaine was 3 days prior. He states that he is currently in withdrawal but has no other symptoms. He denies headache, dizziness, chest pain , shortness of breath, abdominal pain, changes in bowel movements, dysuria. PMH: hypertension, hepatitis C, seizures, polysubstance abuse, depression Past surgical: none Social history: Denies alcohol use. Smokes 10-15 cigarettes per day for past 30 years. 6-8 bags of heroin per day for past 15 years. Marijuana and cocaine approximately once a week. Family history: none Allergies: penicillins (reaction unknown) Home medications: none PMD: Dr. Grier Advance directive: none Full code Proxy: Aida Das (sister) [phone] Review of Systems - Constitutional Constitutional: absent: Fever, Headache, Night Sweats - EENT Eyes: absent: Change in Vision Ears: absent: Abnormal Hearing - Cardiovascular Cardiovascular: absent: Chest Pain, Diaphoresis - Respiratory Respiratory: absent: Cough, Dyspnea - Gastrointestinal Gastrointestinal: absent: Abdominal Pain, Change in Bowel Habits - Genitourinary Genitourinary: absent: Dysuria - Integumentary Integumentary: absent: New Lesions, Rash, Skin Ulcer - Psychiatric Psychiatric: Depression Past Patient History - Past Medical History & Family History Past Medical History?: Yes - Past Social History Smoking Status: Heavy Smoker > 10 Cigarettes Daily Alcohol: None Drugs: Cannabis, Cocaine, Opiates - CARDIAC Hx Cardiac Disorders: No Hx Hypertension: Yes (Patient states non compliant with HTN meds) - PULMONARY Hx Tuberculosis: No - NEUROLOGICAL HX Cerebrovascular Accident: No Hx Seizures: Yes (Patient reported seizures during opiate withdrawal) - HEMATOLOGICAL/ONCOLOGICAL Hx Cancer: No Hx Human Immunodeficiency Virus (HIV): No - GENITOURINARY/GYNECOLOGICAL Hx Sexually Transmitted Disorders: No Hx Urinary Tract Infection: No - PSYCHIATRIC Hx Substance Use: No - SURGICAL HISTORY Hx Surgeries: No - ANESTHESIA Hx Anesthesia: No Meds Allergies/Adverse Reactions: Allergies Allergy/AdvReac Type Severity Reaction Status Date / Time Penicillins Allergy Verified 05/13/18 18:21 - Medications Medications: Current Medications Pneumococcal Polyvalent Vaccine (Pneumovax 23 Vaccine) 0.5 ml IM .ONCE ONE Stop: 05/16/18 10:01 Physical Exam - Constitutional Appears: Non-toxic, No Acute Distress - Head Exam Head Exam: ATRAUMATIC, NORMOCEPHALIC - Eye Exam Eye Exam: EOMI, Normal appearance - ENT Exam ENT Exam: Mucous Membranes Moist, Normal Exam - Neck Exam Neck exam: Positive for: Normal Inspection - Respiratory Exam Respiratory Exam: Clear to Auscultation Bilateral, NORMAL BREATHING PATTERN. absent: Rales, Rhonchi, Wheezes - Cardiovascular Exam Cardiovascular Exam: Bradycardia, REGULAR RHYTHM, +S1, +S2 - GI/Abdominal Exam GI & Abdominal Exam: Hypoactive Bowel Sounds, Soft. absent: Distended, Firm, Guarding - Extremities Exam Extremities exam: Positive for: full ROM, normal inspection. Negative for: calf tenderness - Back Exam Back exam: NORMAL INSPECTION - Neurological Exam Neurological exam: Alert, CN II-XII Intact, Oriented x3 - Psychiatric Exam Psychiatric exam: Agitated - Skin Skin Exam: Dry, Intact, Warm Results - Vital Signs Recent Vital Signs: Last Vital Signs Temp 97.4 F L 05/14/18 06:33 Pulse 75 05/14/18 11:37 Resp 18 05/14/18 06:33 BP 126/83 05/14/18 11:37 Pulse Ox 97 05/14/18 06:33 - Labs Result Diagrams: 05/13/18 19:08 05/13/18 19:08 Labs: Laboratory Results - last 24 hr 05/13/18 05/13/18 05/13/18 19:08 19:08 19:41 WBC 6.2 RBC 4.37 L Hgb 12.8 D Hct 37.9 MCV 86.6 MCH 29.2 MCHC 33.7 RDW 13.1 Plt Count 185 MPV 7.7 Neut % (Auto) 59.2 Lymph % (Auto) 28.5 Bryan % (Auto) 8.4 Eos % (Auto) 3.5 Baso % (Auto) 0.4 Neut # (Auto) 3.7 Lymph # (Auto) 1.8 Bryan # (Auto) 0.5 Eos # (Auto) 0.2 Baso # (Auto) 0.0 Sodium 138 Potassium 3.7 Chloride 100 Carbon Dioxide 28 Anion Gap 14 BUN 9 Creatinine 0.8 Est GFR ( Amer) > 60 Est GFR (Non-Af Amer) > 60 POC Glucose (mg/dL) Random Glucose 154 H Calcium 9.1 Total Bilirubin 0.7 AST 34 ALT 26 Alkaline Phosphatase 72 Total Protein 7.2 Albumin 4.1 Globulin 3.1 Albumin/Globulin Ratio 1.3 Amylase 58 Lipase 43 Urine Color Urine Clarity Urine pH Ur Specific [place] Urine Protein Urine Glucose (UA) Urine Ketones Urine Blood Urine Nitrate Urine Bilirubin Urine Urobilinogen Ur Leukocyte Esterase Salicylates < 1.0 Urine Opiates Screen Urine Methadone Screen Acetaminophen < 10.0 L Ur Barbiturates Screen Ur Phencyclidine Scrn Ur Amphetamines Screen U Benzodiazepines Scrn U Oth Cocaine Metabols U Cannabinoids Screen Alcohol, Quantitative < 10 05/13/18 05/13/18 05/13/18 20:30 20:41 20:41 WBC RBC Hgb Hct MCV MCH MCHC RDW Plt Count MPV Neut % (Auto) Lymph % (Auto) Bryan % (Auto) Eos % (Auto) Baso % (Auto) Neut # (Auto) Lymph # (Auto) Bryan # (Auto) Eos # (Auto) Baso # (Auto) Sodium Potassium Chloride Carbon Dioxide Anion Gap BUN Creatinine Est GFR ( Amer) Est GFR (Non-Af Amer) POC Glucose (mg/dL) 157 H Random Glucose Calcium Total Bilirubin AST ALT Alkaline Phosphatase Total Protein Albumin Globulin Albumin/Globulin Ratio Amylase Lipase Urine Color Yellow Urine Clarity Clear Urine pH 7.0 Ur Specific Ch[place] 1.005 Urine Protein Negative Urine Glucose (UA) Normal Urine Ketones Negative Urine Blood Negative Urine Nitrate Negative Urine Bilirubin Negative Urine Urobilinogen Normal Ur Leukocyte Esterase Neg Salicylates Urine Opiates Screen Positive H Urine Methadone Screen Negative Acetaminophen Ur Barbiturates Screen Negative Ur Phencyclidine Scrn Negative Ur Amphetamines Screen Negative U Benzodiazepines Scrn Negative U Oth Cocaine Metabols Positive H U Cannabinoids Screen Negative Alcohol, Quantitative Assessment & Plan - Assessment and Plan (Free Text) Assessment: Patient is a 53 year old male with past medical history of hypertension, hepatitis C, seizures, polysubstance abuse, depression presenting with bradycardia. Plan: Asymptomatic bradycardia - BP 162/83, HR 41 - Secondary to heroin abuse vs. xanax - EKG shows sinus bradycardia - UDS positive for opiates, cocaine - Followup ECHO - Followup CMP, TSH, T4, Mg, Phos - Vital signs Q6H - Repeat UDS - Cardiology consulted. Appreciate recs. Polysubstance abuse - Continue detox management per psychiatry - Psychiatry already in contact with poison control Bakari Simeon PGY-1
[2018-05-15 10:02] LABS: ALB/GLOB RATIO 1.3 (1.0-2.1); ALBUMIN 4.3 g/dL (3.5-5.0); ALT/SGPT 27 U/L (21-72); AST/SGOT 25 U/L (17-59); BLOOD UREA NITROGEN 9 mg/dL (9-20); CALCIUM 9.5 mg/dl (8.6-10.4); GFR AFRICAN-AMERICAN > 60; GFR NON-AFRICAN AMERICAN > 60
--- NOTE | 2018-05-15 12:47 | CP.PCM.PN ---
Subjective - Date & Time of Evaluation Date of Evaluation: 05/15/18 Time of Evaluation: 12:30 - Subjective Subjective: Patient was seen and examined by me. He was in bed at rest not in any distress. Per staff he has been obersved walking to and from his room without assistance. Staff explained that early today he was also evaluated by cardiology Patient denied chest pain, denied shortness of breath. The repeat EKGs have been sinus lenora in the high 40s. He denies feeling dizzy or tired when he walks The lab work from this AM was stable. As mentioned previously he is here with concern for polysubstance abuse including xanax overuse. Objective - Vital Signs/Intake and Output Vital Signs (last 24 hours): Temp Pulse Resp BP Pulse Ox 98.2 F 47 L 18 153/83 H 97 05/15/18 06:00 05/15/18 06:00 05/15/18 06:00 05/15/18 06:00 05/14/18 06:33 - Medications Medications: Current Medications Methadone HCl (Methadone) 15 mg PO DAILY EMILY PRN Reason: Taper Stop: 05/19/18 09:59 Pneumococcal Polyvalent Vaccine (Pneumovax 23 Vaccine) 0.5 ml IM .ONCE ONE Stop: 05/16/18 10:01 - Labs Labs: 05/13/18 19:08 05/15/18 09:31 - Constitutional Appears: No Acute Distress, Unkempt - Head Exam Head Exam: NORMAL INSPECTION, NORMOCEPHALIC - Eye Exam Eye Exam: EOMI - ENT Exam ENT Exam: Mucous Membranes Moist - Respiratory Exam Respiratory Exam: Clear to Ausculation Bilateral, NORMAL BREATHING PATTERN - Cardiovascular Exam Cardiovascular Exam: REGULAR RHYTHM. absent: Murmur - GI/Abdominal Exam GI & Abdominal Exam: Normal Bowel Sounds - Neurological Exam Neurological Exam: Alert, Awake, Oriented x3 Neuro motor strength exam: Left Upper Extremity: 5, Right Upper Extremity: 5, Left Lower Extremity: 5, Right Lower Extremity: 5 - Psychiatric Exam Psychiatric exam: Normal Affect, Normal Mood - Skin Skin Exam: Normal Color, Warm Assessment and Plan - Assessment and Plan (Free Text) Assessment: Assessment: Patient is a 53 year old male with past medical history of hypertension, hepatitis C, seizures, polysubstance abuse, depression presenting with bradycardia. Plan: Asymptomatic bradycardia 05/15: At this time remains stable. No changes overnight. He is observed walking without problems. Continue to observe. If he does ok overnight and tomorrow then probably can sign off. He has been on methadone and is here due to heroine abuse and xanax misuse. His EKGs have shown sinus bradycardia Polysubstance abuse - heroine as well as xanax Continue detox management per psychiatry Psychiatry already in contact with poison control
--- NOTE | 2018-05-15 23:57 | CON ---
Copied To: Immanuel Epstein MD Attending MD: Immanuel Epstein MD DATE: 05/15/2018 CARDIOLOGY CONSULTATION LOCATION: Presently in [address] [place] [address], it is psych unit. Requested to see this 53-year-old white male due to bradycardia. This gentleman was admitted yesterday due to severe heroin addiction, shooting heroin on a regular basis as well as smoking marijuana, etc. He was found to be in mild withdrawal process and he is being medicated now with methadone. REVIEW OF SYSTEMS: He denies any dizziness, syncope on any given time. No exertion or resting chest pain. No shortness of breath. No orthopnea or PND. MEDICATIONS: He takes no medications. He smokes cigarettes. ALLERGIES: HE CLAIMS TO BE ALLERGIC TO PENICILLIN. The rest of the review of systems, otherwise, negative. PHYSICAL EXAMINATION: GENERAL: Alert, oriented, examined him in bed. He complaining of tremor. He tells me he was feeling fine. VITAL SIGNS: Latest vital signs showing a blood pressure of about 150/80, pulse in mildly bradycardia of 45 to 50. Afebrile. Respiratory rate unremarkable. NECK: From the cardiologic viewpoint, the jugular veins and carotids are normal. Pulses are equal and with normal volume. No dependent edema. CARDIAC: No thrills. Auscultation reveals heart sounds normal in intensity. Slightly bradycardic, but when I asked him to moving back to sit up to listen to his lungs, etc, the heart rate did topple down. LUNGS: Relatively clear to auscultation. ABDOMEN: Shows no localized tenderness. TONG SETTER: Alert and oriented. No focal deficits. COMPLEMENTARY DATA: The electrocardiogram review is showing some sinus arrhythmia with sinus bradycardia. Lab data as of yesterday showing normal CBC, electrolytes are normal. Potassium is also normal. The urine for drug screen is positive for opioids as well as for cocaine. ASSESSMENT: Sinus arrhythmia with sinus bradycardia, appears to be physiologic at this point in time. SUGGESTION: Continue watching him from the cardiological viewpoint. No need at this moment for any cardiological investigation because this appears to be old, physiological. Incidentally, free T4 was reported as normal. Immanuel Epstein MD [facility] # [id number]
[2018-05-16] MEDS ORDERED: Pneumococcal 23-Valent Vaccine IM ONE (10:00)
--- NOTE | 2018-05-16 11:47 | PCM.PYCHPN ---
Psychiatric Progress Note - Psychiatric Progress Note Patient seen today, length of contact: 15 min Patient Chief Complaint: I am withdrawing.' Medication Change: Yes Medical Record Reviewed: Yes Mental Status Examination - Cognitive Function Orientation: Person, Place, Situation, Time Memory: Intact Attention: WNL Concentration: Poor Association: WNL Fund of Knowledge: Poor - Mood Mood: Depressed - Affect Affect: Constricted - Speech Speech: Appropriate - Formal Thought Process Formal Thought Process: No Impairment - Suicidal Ideation Suicidal Ideation: No - Homicidal Ideation Homicidal Ideation: No Goal/Treatment Plan - Goal/Treatment Plan Need for Continued Stay: Severe depression anxiety, Severe functional impairment Progress Toward Problem(s) and Goals/Treatment Plan: 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
--- NOTE | 2018-05-16 12:11 | CARD ---
APPROVED REPORT Date of service: 05/14/2018 EKG Measurement Heart [id number] <Conclusion> Marked sinus bradycardia Left axis deviation Nonspecific T wave abnormality Abnormal ECG
--- NOTE | 2018-05-16 22:53 | CARD ---
APPROVED REPORT Date of service: 05/16/2018 EXAM: Two-dimensional and M-mode echocardiogram with Doppler and color Doppler. Other Information Quality : GoodRhythm : Bradycardia INDICATION COCAINE ABUSE RISK FACTORS Hypertension 2D DIMENSIONS IVSd1.4 (0.7-1.1cm)Aortic Root (2D)3.4 (2.0-3.7cm) LVDd6.0 (3.9-5.9cm)PWd0.9 (0.7-1.1cm) LVDs3.1 (2.5-4.0cm)FS (%) 49.0 % LVEF (%)79.6 (>50%) M-Mode DIMENSIONS RVDd2.53 (2.1-3.2cm)Left Atrium (MM)4.48 (2.5-4.0cm) IVSd1.28 (0.7-1.1cm)Aortic Root3.80 (2.2-3.7cm) LVDd5.80 (4.0-5.6cm)Aortic Cusp Exc.2.43 (1.5-2.0cm) PWd1.04 (0.7-1.1cm)FS (%) 42 % LVDs3.37 (2.0-3.8cm)LVEF (%)72 (>50%) Mitral Valve MV E Spbyplkd43.3cm/sMV A Ilmbqitn67.9cm/sE/A ratio0.7 TDI E/Lateral E'0.0E/Medial E'0.0 Tricuspid Valve TR Peak [id number]/sTR Peak [id number] LEFT VENTRICLE The Left Ventricle is borderline dilated. There is borderline to mild asymmetric left ventricular hypertrophy. Left ventricle systolic function is normal. The Ejection Fraction is >70%. There is normal LV segmental wall motion. The left ventricular diastolic function is abnormal- Grade I-abnormal relaxation pattern. No left ventricle thrombus noted on this study. RIGHT VENTRICLE The right ventricle is normal size. The right ventricular systolic function is normal. ATRIA The left atrium is mildly dilated. The right atrium size is normal. AORTIC VALVE The aortic valve is mildly thickened. The aortic valve is trileaflet. No aortic regurgitation is present. There is no aortic valvular stenosis. There is no aortic valvular vegetation. MITRAL VALVE Mitral annular calcification is mild. There is no evidence of mitral valve prolapse. There is no mitral valve stenosis. Mitral regurgitation is trace to mild. TRICUSPID VALVE The tricuspid valve is normal in structure. There is trace to mild tricuspid regurgitation. Right ventricular systolic pressure is estimated at less than 30 mmHg. There is no pulmonary hypertension. There is no tricuspid valve prolapse or vegetation. There is no tricuspid valve stenosis. PULMONIC VALVE The pulmonic valve is not well visualized. There is trace pulmonic valvular regurgitation. GREAT VESSELS The aortic root is normal in size. The IVC is normal in size and collapses >50% with inspiration. PERICARDIAL EFFUSION There is no pericardial effusion. There is no pleural effusion. <Conclusion> The Left Ventricle is borderline dilated. There is borderline to mild asymmetric left ventricular hypertrophy. Left ventricle systolic function is normal. The Ejection Fraction is >70%. The left ventricular diastolic function is abnormal- Grade I-abnormal relaxation pattern. The right ventricle is normal size. The right ventricular systolic function is normal. The left atrium is mildly dilated. The right atrium size is normal. Mitral regurgitation is trace to mild. There is trace to mild tricuspid regurgitation. There is trace pulmonic valvular regurgitation.
--- NOTE | 2018-05-18 12:05 | CARD ---
APPROVED REPORT Date of service: 05/13/2018 EKG Measurement Heart [id number] <Conclusion> Marked sinus bradycardia T wave abnormality, consider lateral ischemia Abnormal ECG
[2018-05-19 06:34] VITALS: BP 161/99; PULSE 47; RESP 20; TEMP 98.5; O2SAT 98
--- NOTE | 2018-05-19 10:12 | PCM.PYCHDC ---
Mental Status Examination - Mental Status Examination Orientation: Person, Place, Situation, Time Memory: Intact Mood: Neutral Affect: Constricted Speech: Soft Attention: WNL Concentration: WNL Association: WNL Fund of Knowledge: WNL Formal Thought Process: No Impairment Description of patient's judgement and insight: good, fair Psychotic Thoughts and Behaviors: denies any AVH Suicidal Ideation: No Current Homicidal Ideation?: No Discharge Summary - Discharge Note Reason for Hospitalization: Patient is a 53-year-old, CM who presented to the ED after a drug overdose. Pt stated that yesterday he was feeling increasingly depressed and he took 12, 2mg tablets of Xanax, from 8am until 3pm, along with heroin intravenously. He reports depressed mood and feelings of hopelessness and helplessness and states a desire to . Pt was just discharged from [facility] 2 months ago, to the [facility]. As per him, he couldn't stay there long and signed himself out within a week. Patient reports several stressors. Three months ago his father while he was living in [place] for a year. Patients been feeling guilty about not be with his father at the time of his passing. After his father passed he moved back to [place] to live in his fathers home, however, the home went into [facility] , making patient homeless. Patient reports his substance abuse amount and frequency has increased since his fathers passing. The past 3 months hes been intravenously using 4-6 bags of heroin daily. Patient reports feeling alone and isolated. He has one sibling in [place], Aida that he is close with. The rest of his siblings live in [place] or [place] and his only child, a son, is in the [employer] in [place]. Patient reports no sleep the past 3 days due to having no place to rest. He reports having a good appetite. He denies homicidal ideation and psychosis. He reports withdrawal symptoms including nausea, headaches and sweating. Consultations:: List each consultation separately and include: 1. Reason for request. 2. Findings. 3. Follow-up Summary of Hospital Course include:: 1. Description of specific treatment plan utilized for patients during their course of treatmen. 2. Summarize the time- course for resolution of acute symptoms and/or regressed behaviors. 3. Describe issues identified and worked on during hospitalization. 4. Describe medication utilized. 5. Describe medical problems identified and treated. 6. Reassessment of suicide risk Summary of Hospital Course: Patient is a 53-year-old, CM who presented to the ED after a drug overdose. Pt stated that yesterday he was feeling increasingly depressed and he took 12, 2mg tablets of Xanax, from 8am until 3pm, along with heroin intravenously. He reports depressed mood and feelings of hopelessness and helplessness and states a desire to . Pt was just discharged from [facility] 2 months ago, to the [facility]. As per him, he couldn't stay there long and signed himself out within a week. Patient reports several stressors. Three months ago his father while he was living in [place] for a year. Patients been feeling guilty about not be with his father at the time of his passing. After his father passed he moved back to [place] to live in his fathers home, however, the home went into [facility] , making patient homeless. Patient reports his substance abuse amount and frequency has increased since his fathers passing. The past 3 months hes been intravenously using 4-6 bags of heroin daily. Patient reports feeling alone and isolated. He has one sibling in [place], Aida that he is close with. The rest of his siblings live in [place] or [place] and his only child, a son, is in the [employer] in [place]. Patient reports no sleep the past 3 days due to having no place to rest. He reports having a good appetite. He denies homicidal ideation and psychosis. He reports withdrawal symptoms including nausea, headaches and sweating. 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
== END 2018-05-19 14:50 | disposition home or self-care (01) | DRG 430 ==
LOC: C.ER 18:04 → C.5E 21:26
PROVIDERS: ADMIT Psychiatry & Neurology Psychiatry; ATTEND Psychiatry & Neurology Psychiatry
PROC: HZ2ZZZZ Detoxification Services for Substance Abuse Treatment (ICD-10-PCS; principal; 2018-05-13)
PROC: GZHZZZZ Group Psychotherapy (ICD-10-PCS; 2018-05-13)
PROC: HZ52ZZZ Individual Psychotherapy for Substance Abuse Treatment, Cognitive-Behavioral (ICD-10-PCS; 2018-05-13)
PROC: HZ59ZZZ Individual Psychotherapy for Substance Abuse Treatment, Supportive (ICD-10-PCS; 2018-05-13)
PROC: HZ56ZZZ Individual Psychotherapy for Substance Abuse Treatment, Psychoeducation (ICD-10-PCS; 2018-05-13)
PROC: HZ42ZZZ Group Counseling for Substance Abuse Treatment, Cognitive-Behavioral (ICD-10-PCS; 2018-05-13)
PROC: HZ46ZZZ Group Counseling for Substance Abuse Treatment, Psychoeducation (ICD-10-PCS; 2018-05-13)
PROC: GZ58ZZZ Individual Psychotherapy, Cognitive-Behavioral (ICD-10-PCS; 2018-05-13)
PROC: GZ56ZZZ Individual Psychotherapy, Supportive (ICD-10-PCS; 2018-05-13)
DX: F33.2 Major depressive disorder, recurrent severe without psychotic features (principal); F11.23 Opioid dependence with withdrawal; F14.20 Cocaine dependence, uncomplicated; T42.4X2A Poisoning by benzodiazepines, intentional self-harm, initial encounter; F41.9 Anxiety disorder, unspecified; F17.210 Nicotine dependence, cigarettes, uncomplicated; G47.00 Insomnia, unspecified; I10 Essential (primary) hypertension; Z59.0 Homelessness; R00.1 Bradycardia, unspecified